=== PATIENT | male | born 1985 | race Caucasian/White ===

== ENCOUNTER 2018-12-03 11:19 | Outpatient (CLI) | payer OTHER | END 2018-12-03 12:30 | disposition home or self-care (01) | LOC: RAD 11:19 | DX: R06.02 Shortness of breath (principal) ==

== ENCOUNTER 2019-05-01 10:47 | Outpatient (CLI) | payer OTHER | END 2019-05-01 11:02 | disposition home or self-care (01) | LOC: TOM 10:47 | DX: R22.1 Localized swelling, mass and lump, neck (principal); E21.0 Primary hyperparathyroidism; J38.6 Stenosis of larynx ==

== ENCOUNTER 2019-05-04 11:48 | Outpatient (CLI) | payer OTHER | END 2019-05-04 11:53 | disposition home or self-care (01) | LOC: SONOGRAMA 11:48 | DX: K30 Functional dyspepsia (principal); R14.0 Abdominal distension (gaseous); R11.0 Nausea; K62.89 Other specified diseases of anus and rectum; R14.3 Flatulence ==

== ENCOUNTER 2019-05-14 12:01 | Outpatient (CLI) | payer OTHER | END 2019-05-14 13:00 | disposition home or self-care (01) | LOC: TOM 12:01 | DX: R59.0 Localized enlarged lymph nodes (principal); R14.0 Abdominal distension (gaseous); K44.9 Diaphragmatic hernia without obstruction or gangrene; R93.89 Abnormal findings on diagnostic imaging of other specified body structures; E73.8 Other lactose intolerance; R12 Heartburn ==

== ENCOUNTER 2019-12-22 14:12 | Outpatient (CLI) | payer OTHER | END 2019-12-22 14:24 | disposition home or self-care (01) | LOC: RAD 14:12 | DX: M54.12 Radiculopathy, cervical region (principal); M54.14 Radiculopathy, thoracic region ==

== ENCOUNTER 2021-10-30 15:47 | Outpatient (CLI) | payer OTHER | END 2021-10-30 15:56 | disposition home or self-care (01) | LOC: RAD 15:47 | DX: R07.82 Intercostal pain (principal) ==

== ENCOUNTER 2022-12-21 10:59 | Outpatient (CLI) | payer OTHER | END 2022-12-21 12:44 | disposition home or self-care (01) | LOC: TOM 10:59 | DX: S22.39XA Fracture of one rib, unspecified side, initial encounter for closed fracture (principal) ==